=== PATIENT | female | born 1965 | race Caucasian/White ===

== ENCOUNTER 2020-08-10 12:59 | Emergency (ER) | payer OTHER ==
[2020-08-10] MEDS ORDERED: TORADOL 10 MG T10 MG PO (15:35)
== END 2020-08-10 15:56 | disposition home or self-care (01) ==
LOC: ER1 12:59
DX: S30.0XXA Contusion of lower back and pelvis, initial encounter (principal); S20.211A Contusion of right front wall of thorax, initial encounter; J44.9 Chronic obstructive pulmonary disease, unspecified; F17.210 Nicotine dependence, cigarettes, uncomplicated; Z88.8 Allergy status to other drugs, medicaments and biological substances; W10.9XXA Fall (on) (from) unspecified stairs and steps, initial encounter; Y92.009 Unspecified place in unspecified non-institutional (private) residence as the place of occurrence of the external cause
CPT/HCPCS: 71111; 72100; 96374; 96375; 99283; J1885; J2405

== ENCOUNTER → 2021-12-12 | Outpatient (CLI) | payer OTHER ==
[~2021-12-12] MED LIST: TORADOL 10 MG T10 MG PO
== END ==
LOC: KOH-I 12:57
DX: S82.832A Other fracture of upper and lower end of left fibula, initial encounter for closed fracture (principal)
CPT/HCPCS: 73610

== ENCOUNTER → 2022-01-13 | Outpatient (CLI) | payer OTHER | LOC: KOH-I 13:00 | DX: S82.832A Other fracture of upper and lower end of left fibula, initial encounter for closed fracture (principal); M79.89 Other specified soft tissue disorders; X58.XXXA Exposure to other specified factors, initial encounter | CPT/HCPCS: 73610 ==